=== PATIENT | male | born 1995 | race African-American/Black ===

== ENCOUNTER → 2021-04-18 | Outpatient (CLI) | payer OTHER | LOC: MHCPAIN 09:58 | DX: M79.18 Myalgia, other site (principal); M54.16 Radiculopathy, lumbar region; M53.3 Sacrococcygeal disorders, not elsewhere classified; G57.01 Lesion of sciatic nerve, right lower limb | CPT/HCPCS: G0463 ==

== ENCOUNTER → 2021-04-26 | Outpatient (CLI) | payer OTHER | LOC: MHCPAIN 12:57 | DX: M79.18 Myalgia, other site (principal); M54.5 Low back pain | CPT/HCPCS: J1040 ==